=== PATIENT | male | born 1935 | race Caucasian/White ===

== ENCOUNTER → 2020-02-11 | Outpatient (CLI) | payer MEDICARE ==
--- NOTE | 2020-02-11 11:28 | KCIC ---
MRI Brain without contrast History:Memory loss Technique: Multiplanar, multisequential noncontrast MR imaging was performed of the brain. Comparison: None Findings: There is mild motion. There is no evidence of recent infarct or cytotoxic edema. Ventricular size is proportionate to the sulcal spaces, mild generalized supratentorial involutional change.There is no significant midline shift, intraaxial mass effect, or focal abnormal extra-axial fluid collection. There is multifocal moderate T2 and FLAIR hyperintense abnormality of the supratentorial parenchyma bilaterally, also of the leigh ann. Some foci of the supratentorial parenchyma have a perpendicular orientation relative to the lateral ventricles. There are some small old lacunar infarcts of the bilateral cerebellum, bilateral basal ganglia, and left thalamus. There is no significant hemosiderin deposition of the brain parenchyma. There is preservation of the major intracranial flow-voids at the skull base. The cerebellar tonsils are normal in location. There is no significant abnormality of the pineal gland or pituitary gland. There is mild bilateral ethmoid air cell and frontal sinus mucosal thickening. There has been lens surgery bilaterally, slightly disconjugate gaze. The mastoid air cells are aerated. There is preserved marrow signal of the clivus. There is likely posterior protrusion at C3-4 indenting the ventral thecal sac, probable mild spinal stenosis. Impression: 1. There is mild generalized supratentorial involutional change. Multifocal T2 and FLAIR hyperintense signal abnormality of the supratentorial parenchyma and leigh ann is nonspecific, more commonly due to chronic microvascular ischemic disease in a patient this age unless known previous history of inflammatory demyelinating disease. There are old lacunar infarcts as stated. Electronically signed by: Aaron Dutton MD (02/11/2020 11:25 AM) [id number]
== END | disposition home or self-care (01) ==
LOC: KCIC MRI 10:01
PROVIDERS: ATTEND Physician Assistant Medical
DX: I67.82 Cerebral ischemia (principal); I63.9 Cerebral infarction, unspecified; J34.89 Other specified disorders of nose and nasal sinuses; R41.3 Other amnesia
CPT/HCPCS: 70551